=== PATIENT | female | born 1970 | race Caucasian/White ===

== ENCOUNTER 2018-10-16 18:10 | Emergency (ER) | payer MEDICAID ==
[~2018-10-16] VITALS: Ht 157.5 cm; Wt 71.9 kg
[2018-10-16 18:16] VITALS: Ht 157.5 cm; Wt 71.9 kg
[2018-10-16] MEDS ORDERED: ACETAMINOPHEN 325 MG TAB PO STA (18:25)
[2018-10-16] MEDS ORDERED: SODIUM CHLORIDE 0.9% 1L BAG IV* STA (18:25)
[2018-10-16] MEDS ORDERED: KETOROLAC 30 MG INJ IV STA (18:55)
[2018-10-16] MEDS ORDERED: AMOX500C2 PO (21:09)
[2018-10-16] MEDS ORDERED: IBUP-1542 PO (21:09)
[2018-10-16] MEDS ORDERED: AMOXICILLIN 500 MG CAP PO ONE (21:30)
[2018-10-16 21:40] VITALS: BP 101/57; PULSE 101; RESP 16
--- NOTE | 2018-10-16 23:50 | ERD ---
ER Documentation Chief Complaint Chief Complaint frequent painful urination, headache and chills x1 day HPI The patient is a 48-year-old female, presenting to the ER because of frequent urination, headache, sore throat, general body pain for 1 day, denies neck pain, chest pain, dyspnea, abdominal pain, vomiting, diarrhea. She does not smoke nor drink Past medical history: Hypertension Past surgical history: 3 ROS All systems reviewed and are negative except as per history of present illness. Medications Home Meds Active Scripts Ibuprofen* (Motrin*) 600 Mg Tab, 600 MG PO Q6H PRN for PAIN AND OR ELEVATED TEMP, #30 TAB Prov:KEANU HOLT MD 10/16/18 Amoxicillin* (Amoxicillin*) 500 Mg Cap, 500 MG PO TID for 10 Days, CAP Prov:KEANU HOLT MD 10/16/18 Allergies Allergies: Coded Allergies: No Known Drug Allergy (Verified Allergy, Unknown, 08/30/06) PMhx/Soc History of Surgery: Yes () Anesthesia Reaction: No Hx Cardiac Disorders: Yes (HTN) Hx Alcohol Use: No Hx Substance Use: No Hx Tobacco Use: No Smoking Status: Never smoker Physical Exam Vitals Vital Signs Date Temp Pulse Resp B/P (MAP) Pulse Ox O2 O2 Flow FiO2 Time Delivery Rate 10/16/18 98.9 101 16 101/57 100 Room Air 21:40 (72) 10/16/18 99.1 112 22 107/55 100 Room Air 20:22 (72) 10/16/18 121 22 110/64 100 Room Air 19:30 (79) 10/16/18 101.5 18:40 10/16/18 101.5 120 18 128/67 98 18:16 (87) Physical Exam Const: No acute distress. Head: Atraumatic. Eyes: Normal Conjunctiva. ENT: Normal External Ears, Nose and Mouth. Bilateral tympanic membranes are within normal limits, oropharynx is erythematous with exudate Neck: Full range of motion. No meningismus. Resp: Clear to auscultation bilaterally. Cardio: Regular tachycardic Abd: Soft, non distended, normal bowel sounds, non tender. Skin: No petechiae or rashes. Back: No midline or flank tenderness. Ext: No cyanosis, or edema. Neur: Awake and alert. No focal deficit Psych: Normal Mood and Affect. Result Diagram: 10/16/18 1831 10/16/18 1831 Results 24 hrs Laboratory Tests Test 10/16/18 18:30 10/16/18 18:31 10/16/18 18:32 10/16/18 18:46 POC Venous 1.3 mmol/L Lactate White Blood Count 18.1 10^3/ul Red Blood Count 4.68 10^6/ul Hemoglobin 9.0 g/dl Hematocrit 30.5 % Mean Corpuscular 65.2 fl Volume Mean Corpuscular 19.2 pg Hemoglobin Mean Corpuscular 29.5 g/dl Hemoglobin Concen t Red Cell 18.1 % Distribution Width Platelet Count 408 10^3/UL Mean Platelet 9.9 fl Volume Immature 0.500 % Granulocytes % Neutrophils % 85.0 % Lymphocytes % 8.4 % Monocytes % 5.6 % Eosinophils % 0.2 % Basophils % 0.3 % Nucleated Red 0.0 /100WBC Blood Cells % Immature 0.090 10^3/ul Granulocytes # Neutrophils # 15.4 10^3/ul Lymphocytes # 1.5 10^3/ul Monocytes # 1.0 10^3/ul Eosinophils # 0.0 10^3/ul Basophils # 0.1 10^3/ul Nucleated Red 0.0 10^3/ul Blood Cells # Prothrombin Time 12.5 Sec Prothrombin Time 1.0 Ratio INR International 0.92 Normalized Ratio Activated 25.5 Sec Partial Thrombopl ast Time Sodium Level 138 mmol/L Potassium Level 3.8 mmol/L Chloride Level 104 mmol/L Carbon Dioxide 22 mmol/L Level Anion Gap 12 Blood Urea 16 mg/dl Nitrogen Creatinine 0.69 mg/dl Est Glomerular > 60 mL/min Filtrat Rate mL/min Glucose Level 99 mg/dl Calcium Level 8.9 mg/dl Total Bilirubin 0.3 mg/dl Direct Bilirubin 0.00 mg/dl Indirect 0.3 mg/dl Bilirubin Aspartate Amino 30 IU/L Transf (AST/SGOT) Alanine 18 IU/L Aminotransferase (ALT/SGPT) Alkaline 89 IU/L Phosphatase Troponin I < 0.012 ng/ml Total Protein 8.0 g/dl Albumin 4.3 g/dl Globulin 3.70 g/dl Albumin/Globulin 1.16 Ratio Urine Color YELLOW Urine Clarity CLEAR Urine pH 8.0 Urine Specific 1.025 [place] Urine Ketones NEGATIVE mg/dL Urine Nitrite NEGATIVE mg/dL Urine Bilirubin NEGATIVE mg/dL Urine NEGATIVE mg/dL Urobilinogen Urine Leukocyte NEGATIVE Dieudonne/ul Esterase Urine Microscopic 4 /HPF RBC Urine Microscopic 0 /HPF WBC Urine Squamous FEW /HPF Epithelial Cells Urine Hemoglobin 1+ mg/dL Urine Glucose NEGATIVE mg/dL Urine Total NEGATIVE mg/dl Protein Bedside Urine pH 8.5 (LAB) Bedside Urine Trace Protein (LAB) Bedside Urine Negative Glucose (UA) Bedside Urine Trace Ketones (LAB) Bedside Urine Trace-intact Blood Bedside Urine Negative Nitrite (LAB) Bedside Urine Negative Leukocyte Esteras e (L Test 10/16/18 18:48 POC Beta HCG, NEGATIVE Qualitative Current Medications Medications Dose Sig/Oliverio Start Time Status Last (Trade) Ordered Route PRN Stop Time Admin Dose Reason Admin Sodium 2,160 ml BOLUS OVER 2 10/16/18 DC 10/16/18 Chloride HOURS STAT 18:25 18:34 (NS) IV* 10/16/18 18:27 650 mg ONCE STAT 10/16/18 DC 10/16/18 Acetaminophen PO 18:25 18:40 (Tylenol 10/16/18 18:27 Tab) Ketorolac 30 mg ONCE STAT 10/16/18 DC 10/16/18 Tromethamine IV 18:55 19:15 (Toradol) 10/16/18 19:07 Amoxicillin 500 mg ONCE ONCE 10/16/18 DC 10/16/18 PO 21:30 21:32 (Amoxicillin) 10/16/18 21:31 Procedures/[place] [id number] Radiology Main Line: [phone] DIAGNOSTIC IMAGING REPORT Patient: ROCIO JUAN : 1970 Age: 48 Sex: F MR #: [id number] DOS: 10/16/18 1825 Ordering MD: KEANU HOLT MD Location: E/R Room/Bed: PROCEDURE: XR Chest. CLINICAL INDICATION: Sepsis TECHNIQUE: Frontal chest x-ray was obtained. COMPARISON: None. FINDINGS: The heart is not enlarged. Mediastinum is not widened. No hilar masses seen. Lungs are clear of any infiltrates. There is no effusion or pneumothorax. The osseous structures appear normal. IMPRESSION: No evidence for active cardiopulmonary disease. .Salinas Crum MD, MD Date Time Electronically viewed and signed by .Salinas Crum MD, MD on 10/16/2018 19:50 .A/ CC: KEANU HOLT MD [phone] EKG: Read by emergency physician Rate/Rhythm: Sinus Tachycardia 134 beats/min QRS, ST, T-waves: No ST elevation, no T inversion Impression: Abnormal EKG MEDICAL MAKING DECISION: The patient is a 48-year-old female, presenting with acute strep pharyngitis, was treated with normosaline 30 mm/kg IV for acute dehydration, Tylenol p.o. for fever, Toradol 30 mg IV for acute whole body pain, amoxicillin 500 mg p.o. for acute strep pharyngitis with good response, is st able for outpatient follow-up The differential diagnoses considered include but are not limited to influenza, pneumonia, UTI, pyelonephritis Departure Diagnosis: Primary Impression: Strep pharyngitis with scarlet fever Additional Impression: Anemia Condition: Good Patient Instructions: Strep Throat Referrals: COMMUNITY CLINICS YOU HAVE RECEIVED A MEDICAL SCREENING EXAM AND THE RESULTS INDICATE THAT YOU DO NOT HAVE A CONDITION THAT REQUIRES URGENT TREATMENT IN THE EMERGENCY DEPARTMENT. FURTHER EVALUATION AND TREATMENT OF YOUR CONDITION CAN WAIT UNTIL YOU ARE SEEN IN YOUR DOCTORS OFFICE WITHIN THE NEXT 1-2 DAYS. IT IS YOUR RESPONSIBILITY TO MAKE AN APPOINTMENT FOR FOLOW-UP CARE. IF YOU HAVE A PRIMARY DOCTOR --you should call your primary doctor and schedule an appointment IF YOU DO NOT HAVE A PRIMARY DOCTOR YOU CAN CALL OUR PHYSICIAN REFERRAL HOTLINE AT IF YOU CAN NOT AFFORD TO SEE A PHYSICIAN YOU CAN CHOSE FROM THE FOLLOWING [facility]MER[facility] CLINICS [facility] [address] [facility]. [facility] [address] [facility]. [facility] [address] [facility] [facility] [address] [facility]. [facility] [address] [facility]. [facility] [address] [facility]. [facility] YOU HAVE RECEIVED A MEDICAL SCREENING EXAM AND THE RESULTS INDICATE THAT YOU DO NOT HAVE A CONDITION THAT REQUIRES URGENT TREATMENT IN THE EMERGENCY DEPARTMENT. FURTHER EVALUATION AND TREATMENT OF YOUR CONDITION CAN WAIT UNTIL YOU ARE SEEN IN YOUR DOCTORS OFFICE WITHIN THE NEXT 1-2 DAYS. IT IS YOUR RESPONSIBILITY TO MAKE AN APPOINTMENT FOR FOLOW-UP CARE. IF YOU HAVE A PRIMARY DOCTOR --you should call your primary doctor and schedule and appointment IF YOU DO NOT HAVE A PRIMARY DOCTOR YOU CAN CALL OUR PHYSICIAN REFERRAL HOTLINE AT . IF YOU CAN NOT AFFORD TO SEE A PHYSICIAN YOU CAN CHOSE FROM THE FOLLOWING [facility]: [facility] [address] [place] [address] [facility] [address] [place] [address] [facility] [address] [place] [address] Additional Instructions: She was discharged with amoxicillin and Motrin Call your primary care doctor TOMORROW for an appointment during the next 2-3 days.See the doctor sooner or return here if your condition worsens before your appointment time. KEANU HOLT MD Oct 16, 2018 23:50
== END 2018-10-16 21:40 | disposition home or self-care (01) ==
LOC: E/R 18:10
DX: J02.0 Streptococcal pharyngitis (principal); D64.9 Anemia, unspecified; I10 Essential (primary) hypertension; R30.0 Dysuria; R07.9 Chest pain, unspecified
CPT/HCPCS: 36415; 71045; 80053; 81001; 81025; 83605; 84484; 85025; 85610; 85730; 87040; 87086; 87880; 93005; 96374; J1885; J7030; Z7502; Z7610; 81003